=== PATIENT | female | born 1995 | race Caucasian/White ===

== ENCOUNTER 2019-12-11 11:25 | Emergency (ER) | payer SELFPAY ==
[2019-12-11 11:29] VITALS: BP 116/72; PULSE 90; RESP 16; TEMP 37.1; O2SAT 99; BMI 31.7
--- NOTE | 2019-12-11 11:37 | ED_ITS ---
Entered by Alley Mtz, acting as scribe for Pepe Vásquez MD, [facility] HPI - Abdominal Pain General: Chief Complaint: Abdominal Pain Stated Complaint: blood draw Time Seen by Provider: 12/11/19 11:37 Source: patient Mode of arrival: ambulatory Limitations: no limitations History of Present Illness: HPI narrative: 24 yo Female presents to ED with complaint of abdominal pain. Pt states that she was in the ED on [place] and had a sharp pain in the left side. Pt states that she has been cramping since then and was told to come back in if her cramping continued. Pt states that she has had continued cramping and wants to get her HCG levels checked. Pt states that she had an ectopic about a year and a half ago and wants to make sure she isn't having another one. MD elicited complaint: abdominal pain Onset (ago): week(s) (about 2) Pain Consistency: constant Location: Suprapubic Quality: cramping Radiation: none Migration to: no migration Exacerbating factors: nothing Relieving factors: nothing Associated Symptoms: Reports GI cramping and nausea; Denies chills, dysuria, fever(s) and vomiting Related Data: Date of Last Menstrual Period: 11/23/19 Review of Systems General: Reports: 10 or more systems reviewed and unremarkable except in HPI and below Const: Denies: fever or chills GI: Reports: abdominal pain, nausea and cramping; Denies: vomiting : Reports: vaginal odor (change in vaginal odor); Denies: painful urination, urinary frequency, urinary urgency, vaginal bleeding or vaginal discharge PFS ED PFSH: Statuses (acute, chronic, etc) shown below reflect problem list status as previously entered and may not be historically accurate Medical History (Updated 12/11/19 @ 12:22 by Pepe Vásquez MD, [facility]) Ectopic (Acute) Social History Smoking and tobacco status: current every day smoker Female Reproductive History: Date of last menstrual period: 11/23/19 Physical Exam Const: COMMON NORMALS: no apparent distress, average body habitus, oriented x3, no limitations, healthy appearing, alert and well nourished HENMT: COMMON NORMALS: normocephalic, head/scalp atraumatic, hearing grossly normal bilaterally, external ears normal, EAC's normal, TM's normal bilaterally, external nose normal, nasal mucous membranes and turbinates normal, moist oral mucous membranes, oropharynx normal, dentition normal and gingiva normal HEAD & SCALP: normocephalic and atraumatic NOSE: external nose normal and nasal mucous membranes and turbinates normal EXTERNAL EAR: Yes external ears normal EXTERNAL AUDITORY CANAL: EAC's normal TYMPANIC MEMBRANE: TM's normal bilaterally Eye: COMMON NORMALS: PERRL, EOMs intact bilaterally, conjunctivae normal, no scleral icterus, no papilledema, normal visual pino by confrontation and fundi normal bilaterally CONJUNCTIVA: Yes conjunctivae normal PUPIL: Yes PERRL DIRECT OPHTHALMOSCOPY: Yes no papilledema and Yes fundi normal bilaterally Neck/C-Spine: COMMON NORMALS: full ROM, supple, no meningeal signs, no JVD and no carotid bruits Chest: COMMONS NORMALS: inspection of chest normal and palpation of chest normal Resp: COMMON NORMALS: normal respiratory effort, no retractions, no use of accessory muscles, clear to auscultation bilaterally and percussion normal AUSCULTATION: clear to auscultation bilaterally PERCUSSION: percussion normal Cardio: COMMON NORMALS: no JVD, regular rate, regular rhythm, S1 normal heart sound, S2 normal heart sound, no gallops, no clicks, no murmurs, no rub and peripheral pulses 2+ throughout RATE: regular rate RHYTHM: regular rhythm HEART SOUNDS: S1 normal and S2 normal PERIPHERAL PULSES: pulses 2+ throughout GI: COMMON NORMALS: normal to inspection, nondistended, normoactive bowel sounds, soft to palpation, non-tender, no hepatosplenomegaly, no masses and no bruits PALPATION: Yes soft and Yes no hepatosplenomegaly : COMMON NORMALS: Yes no CVA tenderness BLADDER/KIDNEY EXAM: Yes no CVA tenderness Back/Pelvis: COMMON NORMALS: no CVA tenderness Extremity: COMMON NORMALS: normal to inspection, full ROM, normal capillary refill, no joint enlargement, no clubbing, cyanosis or edema, no calf tenderness and no pedal edema Neuro: COMMON NORMALS: oriented x3 SENSORIUM/ORIENTATION: Yes alert MENINGEAL SIGNS: Yes no meningeal signs Skin: COMMON NORMALS: no rashes or lesions noted, no wounds, skin turgor normal, no jaundice, no petechiae and no mottling GENERAL SKIN EXAM: no rashes or lesions noted and turgor normal Course Vital Signs: Vital signs: Vital Signs Temperature 98.7 F 12/11/19 11:29 Pulse Rate 90 12/11/19 11:29 Respiratory Rate 16 12/11/19 11:29 Blood Pressure 116/72 12/11/19 11:29 Pulse Oximetry 99 12/11/19 11:29 MDM - Abdominal Pain MDM Narrative: Medical decision making narrative: 24-year-old female who presented to the emergency department and apparently wanted blood beta-hCG testing done. The patient did not wait for the results and left AGAINST MEDICAL ADVICE. I went into her room to discuss some of her labs with her and she was not present. Found out that she had left AGAINST MEDICAL ADVICE. Differential Diagnosis: Differential diagnosis abdominal pain: Likely abdominal pain, calculus of kidney, diverticulitis and endometriosis Medical Records: Attestation: I reviewed the patient's medical records. Lab Data: Attestation: I reviewed the patient's lab results. Labs: Lab Results 12/11/19 12/11/19 12/11/19 Range/Units 11:50 11:58 11:58 WBC 5.5 (4.0-10.0) 10^3/ uL RBC 5.04 (4.1-5.3) 10^6/u L Hgb 14.0 (11.5-15.3) g/dL Hct 43.3 (37.0-47.0) % MCV 85.9 (81-99) fL MCH 27.8 L (28.0-34.0) pg MCHC 32.3 (30.0-36.0) g/dL RDW 12.1 (12.1-15.1) % Plt Count 183 (130-400) 10^3/c mm MPV 10.7 H (7.4-10.4) fL Neut % (Auto) 45.6 % Lymph % (Auto) 44.3 % [place] % (Auto) 6.9 % Eos % (Auto) 2.5 % Baso % (Auto) 0.5 % Neut # (Auto) 2.5 (1.8-7.7) 10^3/u L Lymph # (Auto) 2.5 (0.8-4.8) 10^3/u L [place] # (Auto) 0.4 (0.2-0.9) 10^3/u L Eos # (Auto) 0.1 (0.0-0.8) 10^3/u L Baso # (Auto) 0.0 (0.0-0.1) 10^3/u L Nucleated RBC % (a uto) 0 % Nucleated RBCs # 0.0 /100WBC Ser , Flora i-Qnt 0.50 mIU/mL Urine Color Yellow (Yellow) Urine Appearance Clear (CLEAR) Urine pH 5 (5-7) Ur Specific Gravit y 1.010 (1.005-1.030) Urine Protein Neg (Negative) Urine Glucose (UA) Norm (Normal) Urine Ketones Negative (Negative) Urine Occult Blood Neg (Negative) Urine Nitrate Negative (Negative) Urine Bilirubin Neg (NEGATIVE) Urine Urobilinogen Norm (Negative) mg/dL Ur Leukocyte Alicia ase Negative (Negative) Discharge Plan Discharge Patient Disposition: Left Against Medical Advice Clinical Impression: Abdominal pain Referrals: Obey Echavarria FNP [Primary Care Provider] - Patient Instructions: Cholecystitis (ED), Abdominal Pain (ED) Interventions: ED Discharge Assessment Last Done: 12/11/19 12:15 Discharge Date/Time: 12/11/19 12:18 Coding Level of Care Code ED Director Transportation for Chg Fwd Exam Problem Focused The documentation recorded by the Bibi powers Carmen, accurately reflects the service I personally performed and the decisions made by Thalia arriaga Adegoke I, MD, [facility] Dec 11, 2019 11:25
[2019-12-11 11:54] LABS: Add Urine Microscopic? NO
[2019-12-11 11:59] LABS: Bilirubin Urine Neg (NEGATIVE); Blood Urine Neg (Negative); Glucose Urine UA Norm (Normal); Ketones Urine Negative (Negative); Leukocyte Esterase Urine Negative (Negative); Nitrate Urine Negative (Negative); Protein Urine Neg (Negative); Urine Appearance Clear (CLEAR); Urine Color Yellow (Yellow); Urobilinogen Urine Norm (Negative); pH Urine 5 (5-7)
[2019-12-11 12:04] LABS: Basophils % 0.5 %; Eosinophils # 0.1 10^3/uL (0.0-0.8); Eosinophils % 2.5 %; Hematocrit 43.3 % (37.0-47.0); Lymphocytes # 2.5 10^3/uL (0.8-4.8); Lymphocytes % 44.3 %; Mean Corpuscular HGB Conc 32.3 g/dL (30.0-36.0); Mean Corpuscular Hemoglobin 27.8 pg (28.0-34.0); Mean Corpuscular Volume 85.9 fL (81-99); Mean Platelet Volume 10.7 fL (7.4-10.4); Monocytes # 0.4 10^3/uL (0.2-0.9); Monocytes % 6.9 %; Neutrophils # 2.5 10^3/uL (1.8-7.7); Neutrophils % 45.6 %; Nucleated Red Blood Cells % 0 %; Platelet Count 183 10^3/cmm (130-400); Red Blood Count 5.04 10^6/uL (4.1-5.3); Red Cell Distribution Width 12.1 % (12.1-15.1); White Blood Count 5.5 10^3/uL (4.0-10.0)
[2019-12-11 12:30] LABS: Alanine Aminotransferase 20 U/L (0-33); Albumin Level 4.7 g/dL (3.5-5.2); Alkaline Phosphatase 123 IU/L (35-105); Aspartate Amino Transferase 19 U/L (0-32); Blood Urea Nitrogen 7 mg/dL (6-20); Calcium 10.3 mg/Dl (8.6-10.0); Carbon Dioxide 28 mmol/L (22-29); Chloride 105 mmol/L (98-107); Globulin 3.3 g/dL (1.3-4.6); Glomerular Filtration Rate 149.1 mL/min (90-130); Glucose 109 mg/dL (74-109); Sodium 148 mmol/L (136-145); Total Bilirubin 0.5 mg/dL (0.15-1.2)
== END 2019-12-11 12:18 | disposition left against medical advice (07) ==
PROVIDERS: Emergency Provider Family Medicine; Family Provider Registered Nurse; PCP Registered Nurse
DX: Z53.21 Procedure and treatment not carried out due to patient leaving prior to being seen by health care provider (principal); F17.210 Nicotine dependence, cigarettes, uncomplicated
CPT/HCPCS: 36415; 80053; 81003; 84702; 85025; 99281

== ENCOUNTER 2019-12-14 12:35 | Emergency (ER) | payer SELFPAY ==
[2019-12-14 12:44] VITALS: BP 116/84; PULSE 90; RESP 18; TEMP 36.7; O2SAT 98; BMI 31.7
[2019-12-14 13:32] LABS: Basophils % 0.4 %; Eosinophils # 0.1 10^3/uL (0.0-0.8); Eosinophils % 1.1 %; Hematocrit 45.9 % (37.0-47.0); Hemoglobin 14.9 g/dL (11.5-15.3); Lymphocytes # 2.7 10^3/uL (0.8-4.8); Lymphocytes % 33.6 %; Mean Corpuscular HGB Conc 32.5 g/dL (30.0-36.0); Mean Corpuscular Volume 89.3 fL (81-99); Mean Platelet Volume 10.7 fL (7.4-10.4); Monocytes # 0.5 10^3/uL (0.2-0.9); Monocytes % 5.9 %; Neutrophils # 4.8 10^3/uL (1.8-7.7); Neutrophils % 58.6 %; Nucleated Red Blood Cells % 0 %; Platelet Count 206 10^3/cmm (130-400); Red Blood Count 5.14 10^6/uL (4.1-5.3); Red Cell Distribution Width 11.9 % (12.1-15.1); White Blood Count 8.2 10^3/uL (4.0-10.0)
[2019-12-14 13:36] LABS: HCG Quantitative 9.35 mIU/mL
[2019-12-14 13:39] LABS: Alanine Aminotransferase 20 U/L (0-33); Albumin Level 4.8 g/dL (3.5-5.2); Alkaline Phosphatase 124 IU/L (35-105); Anion Gap 13.4 (5-19); Aspartate Amino Transferase 18 U/L (0-32); Blood Urea Nitrogen 13 mg/dL (6-20); Carbon Dioxide 29 mmol/L (22-29); Chloride 102 mmol/L (98-107); Globulin 3.1 g/dL (1.3-4.6); Glomerular Filtration Rate 101.1 mL/min (90-130); Glucose 109 mg/dL (74-109); Potassium 3.4 mmol/L (3.5-5.1); Sodium 141 mmol/L (136-145); Total Bilirubin 0.4 mg/dL (0.15-1.2); Total Protein 7.9 g/dL (6.6-8.7)
--- NOTE | 2019-12-14 14:33 | ED_ITS ---
HPI - Female Genitourinary General: Chief complaint: Abdominal Pain Stated complaint: Cramping and bleeding Time Seen by Provider: 12/14/19 14:33 Source: patient Mode of arrival: ambulatory Limitations: no limitations History of Present Illness: HPI Narrative: Patient is a 24-year-old female who presents to ED today wanting evaluation after she had 4+ home tests this morning; patient was initially seen in our ER on 11/29/2019 for complaints of left-sided lower abdominal pain; she was seen again at our facility 2 days ago for lower abdominal cramping and believing she might be ; hCG at that visit was 0.50/neg; she states she was spotting and has continued to scantly bleed since that visit; she is continued to have mild lower abdominal cramping; denies vaginal discharge/odor; no urinary frequency, hesitancy, dysuria, urgency MD elicited complaint: vaginal bleeding, suspected and other (cramping) Severity: mild Quality of pain: cramping Vaginal discharge: none Vaginal bleeding: scant Exacerbating factors: none Relieving factors: none Associated symptoms: Reports no associated symptoms; Deny abdominal pain, headache(s), nausea, syncope or vaginal discharge Treatment prior to arrival: none Sexual activity: Yes Possible : unsure if and at home test positive Date of Last Menstrual Period: 11/20/19 Review of Systems Const: Denies: fever or chills Eyes: Denies: change in vision or blurry vision Card: Denies: chest pain, palpitations, irregular heart rhythm, lightheadedness, syncope or shortness of breath on exertion Resp: Denies: shortness of breath, productive cough or pain on inspiration GI: Denies: abdominal pain, nausea, vomiting, heartburn/indigestion or diarrhea : Reports: vaginal bleeding and pelvic pain; Denies: flank pain, difficulty urinating, painful urination, urinary frequency, urinary urgency, vaginal discharge or irregular period Musc: Denies: neck pain, back pain or joint pain Skin/Breast: Denies: rash Neuro: Denies: headache PFSH ED PFSH: Statuses (acute, chronic, etc) shown below reflect problem list status as previously entered and may not be historically accurate Medical History (Updated 12/14/19 @ 15:26 by VONDA Jimenez) Ectopic (Acute) Social History Smoking and tobacco status: current every day smoker Female Reproductive History: Date of last menstrual period: 11/20/19 Physical Exam Const: COMMON NORMALS: no apparent distress, oriented x3, alert and well nourished HENMT: COMMON NORMALS: normocephalic and head/scalp atraumatic HEAD & SCALP: normocephalic and atraumatic Neck/C-Spine: COMMON NORMALS: full ROM, no lymphadenopathy, supple and no meningeal signs Chest: COMMONS NORMALS: inspection of chest normal Resp: COMMON NORMALS: normal respiratory effort and clear to auscultation bilaterally AUSCULTATION: clear to auscultation bilaterally Cardio: COMMON NORMALS: regular rate and regular rhythm RATE: regular rate RHYTHM: regular rhythm GI: COMMON NORMALS: normal to inspection, nondistended, normoactive bowel sounds, soft to palpation, no hepatosplenomegaly and no masses PALPATION: Yes soft, Yes tender (mild throughout lower abdomen ) and Yes no hepatosplenomegaly : COMMON NORMALS: Yes no CVA tenderness BLADDER/KIDNEY EXAM: Yes no CVA tenderness Back/Pelvis: COMMON NORMALS: no CVA tenderness and thoracic and lumbar spine normal to inspection Extremity: COMMON NORMALS: normal to inspection Neuro: COMMON NORMALS: oriented x3 SENSORIUM/ORIENTATION: Yes alert MENINGEAL SIGNS: Yes no meningeal signs Skin: COMMON NORMALS: no rashes or lesions noted GENERAL SKIN EXAM: no rashes or lesions noted Course Vital Signs: Vital signs: Vital Signs Temperature 98.0 F 12/14/19 12:44 Pulse Rate 88 12/14/19 15:48 Respiratory Rate 18 12/14/19 15:48 Blood Pressure 118/79 12/14/19 15:48 Pulse Oximetry 97 12/14/19 15:48 MDM - Female MDM Narrative: Medical decision making narrative: spoke to US who stated they aren't going to see anything different today than her previous US (had completely negative US on 11/29) especially given the fact that her hcg is only 9 today; she will be given orders for repeat hCG in 48 hours; information placed with case management to get her set up with an MANAGER BANK return to ED precautions given regarding worsening pain/cramping, increased bleeding, fevers greater than 100.4, urinary symptoms, vaginal discharge/odor, or any other concerns she may have Lab Data: Labs: Lab Results 12/14/19 12/14/19 12/14/19 Range/Units 13:10 13:10 13:10 WBC 8.2 (4.0-10.0) 10^3/ uL RBC 5.14 (4.1-5.3) 10^6/u L Hgb 14.9 (11.5-15.3) g/dL Hct 45.9 (37.0-47.0) % MCV 89.3 (81-99) fL MCH 29.0 (28.0-34.0) pg MCHC 32.5 (30.0-36.0) g/dL RDW 11.9 L (12.1-15.1) % Plt Count 206 (130-400) 10^3/c mm MPV 10.7 H (7.4-10.4) fL Neut % (Auto) 58.6 % Lymph % (Auto) 33.6 % [place] % (Auto) 5.9 % Eos % (Auto) 1.1 % Baso % (Auto) 0.4 % Neut # (Auto) 4.8 (1.8-7.7) 10^3/u L Lymph # (Auto) 2.7 (0.8-4.8) 10^3/u L [place] # (Auto) 0.5 (0.2-0.9) 10^3/u L Eos # (Auto) 0.1 (0.0-0.8) 10^3/u L Baso # (Auto) 0.0 (0.0-0.1) 10^3/u L Nucleated RBC % (a uto) 0 % Nucleated RBCs # 0.0 /100WBC Sodium 141 (136-145) mmol/L Potassium 3.4 L (3.5-5.1) mmol/L Chloride 102 (98-107) mmol/L Carbon Dioxide 29 (22-29) mmol/L Anion Gap 13.4 (5-19) BUN 13 (6-20) mg/dL Creatinine 0.7 (0.5-0.9) mg/dL GFR Calculation 101.1 (90-130) mL/min Glucose 109 (74-109) mg/dL Calcium 10.0 (8.6-10.0) mg/Dl Total Bilirubin 0.4 (0.15-1.2) mg/dL AST 18 (0-32) U/L ALT 20 (0-33) U/L Alkaline Phosphata se 124 H (35-105) IU/L Total Protein 7.9 (6.6-8.7) g/dL Albumin 4.8 (3.5-5.2) g/dL Globulin 3.1 (1.3-4.6) g/dL Ser , Flora i-Qnt mIU/mL Blood Type A Positive 12/14/19 Range/Units 13:10 WBC (4.0-10.0) 10^3/ uL RBC (4.1-5.3) 10^6/u L Hgb (11.5-15.3) g/dL Hct (37.0-47.0) % MCV (81-99) fL MCH (28.0-34.0) pg MCHC (30.0-36.0) g/dL RDW (12.1-15.1) % Plt Count (130-400) 10^3/c mm MPV (7.4-10.4) fL Neut % (Auto) % Lymph % (Auto) % [place] % (Auto) % Eos % (Auto) % Baso % (Auto) % Neut # (Auto) (1.8-7.7) 10^3/u L Lymph # (Auto) (0.8-4.8) 10^3/u L [place] # (Auto) (0.2-0.9) 10^3/u L Eos # (Auto) (0.0-0.8) 10^3/u L Baso # (Auto) (0.0-0.1) 10^3/u L Nucleated RBC % (a uto) % Nucleated RBCs # /100WBC Sodium (136-145) mmol/L Potassium (3.5-5.1) mmol/L Chloride (98-107) mmol/L Carbon Dioxide (22-29) mmol/L Anion Gap (5-19) BUN (6-20) mg/dL Creatinine (0.5-0.9) mg/dL GFR Calculation (90-130) mL/min Glucose (74-109) mg/dL Calcium (8.6-10.0) mg/Dl Total Bilirubin (0.15-1.2) mg/dL AST (0-32) U/L ALT (0-33) U/L Alkaline Phosphata se (35-105) IU/L Total Protein (6.6-8.7) g/dL Albumin (3.5-5.2) g/dL Globulin (1.3-4.6) g/dL Ser , Flora i-Qnt 9.35 mIU/mL Blood Type Discharge Plan Discharge Patient Disposition: Home, Self-Care Clinical Impression: Positive blood test, , threatened Condition: Stable Discharge Orders: Discharge Order (Routine); Ordered 12/14/19 Ordered By: Cherelle Quiñones Referrals: Obey Echavarria FNP [Primary Care Provider] - Activity Restrictions/Additional Instructions: Begin taking prenatals. You have been given order for outpatient repeat hcg in 48 hours. These results will be faxed to [facility]. Case management is working on setting you up with an appointment date and drew. Discharge Date/Time: 12/14/19 15:54 Coding Level of Care Code ED Electrical Engineering Drafting Officer for Chg Fwd Exam Problem Focused
[2019-12-14 15:48] VITALS: BP 118/79; PULSE 88; RESP 18; O2SAT 97
--- NOTE | 2019-12-16 10:52 | DCPLANNER ---
financial institution manager had message to schedule a follow up appointment for patient with [facility]. financial institution manager called [facility], spoke with Jeanine, gave clinic patients information. financial institution manager was told that patients information would be printed and reviewed. Clinic will call bilingual patient support caseworker and patient with appointment information. financial institution manager did have an out patient order for patient to have her blood drawn. financial institution manager took the order to main admissions.
--- NOTE | 2019-12-21 10:51 | DCPLANNER ---
Jeanine from [facility] called, stating that before scheduling an appointment going to wait until labs are drawn. Clinic will call patient with appointment information.
== END 2019-12-14 15:54 | disposition home or self-care (01) ==
PROVIDERS: Emergency Provider Physician Assistant; Family Provider Registered Nurse; PCP Registered Nurse
DX: O20.0 Threatened abortion (principal); Z3A.00 Weeks of gestation of pregnancy not specified; O99.330 Smoking (tobacco) complicating pregnancy, unspecified trimester; F17.210 Nicotine dependence, cigarettes, uncomplicated
CPT/HCPCS: 36415; 80053; 84702; 85025; 86900; 99281; 99283

== ENCOUNTER 2019-12-16 13:42 | Outpatient (CLI) | payer SELFPAY ==
[2019-12-16 14:17] LABS: HCG Quantitative 18.16 mIU/mL
== END 2019-12-16 13:43 | disposition home or self-care (01) ==
LOC: LAB 13:45
PROVIDERS: Family Provider Registered Nurse; PCP Registered Nurse; Visit Provider Physician Assistant
DX: O20.0 Threatened abortion (principal)
CPT/HCPCS: 84702

== ENCOUNTER → 2019-12-21 11:44 | Outpatient (BNVA) | payer SELFPAY | PROVIDERS: Family Provider Registered Nurse; PCP Registered Nurse; Visit Provider Obstetrics & Gynecology | DX: O20.0 Threatened abortion (principal) | CPT/HCPCS: 84702 ==

== ENCOUNTER 2019-12-26 15:34 | Emergency (ER) | payer SELFPAY ==
[2019-12-26 16:09] VITALS: BP 135/109; PULSE 81; RESP 20; TEMP 36.9; O2SAT 100; BMI 30.6
--- NOTE | 2019-12-26 16:23 | W.ED.GENADLT ---
HPI - General Adult General: Chief complaint: General Medical Stated complaint: HCG levels checked Time Seen by Provider: 12/26/19 16:22 History of Present Illness: HPI narrative: Gin this 24-year-old white female presents with a history of positive home test on December 14. She states she went to her [employer]RON[employer]SEMBL[employer]'s office and they did a beta hCG at that time and it was found to be benign. They checked it again 2 days later and it had doubled. The checked again on the and they told her it was negative. Associated symptoms: Deny chest pain, dyspnea, nausea, palpitations or vomiting Review of Systems Const: Denies: fever or chills Eyes: Denies: change in vision ENMT: Denies: throat pain Card: Denies: chest pain or palpitations Resp: Denies: shortness of breath GI: Denies: abdominal pain, nausea or vomiting Musc: Denies: back pain PFSH ED PFSH: Statuses (acute, chronic, etc) shown below reflect problem list status as previously entered and may not be historically accurate Medical History Ectopic (Acute) Social History Smoking and tobacco status: current every day smoker Female Reproductive History: Date of last menstrual period: 11/20/19 Physical Exam Const: COMMON NORMALS: no apparent distress and oriented x3 HENMT: COMMON NORMALS: normocephalic HEAD & SCALP: normocephalic Eye: COMMON NORMALS: PERRL, EOMs intact bilaterally and conjunctivae normal CONJUNCTIVA: Yes conjunctivae normal PUPIL: Yes PERRL Chest: COMMONS NORMALS: inspection of chest normal Resp: COMMON NORMALS: normal respiratory effort and clear to auscultation bilaterally EFFORT & INSPECTION: Yes able to speak in complete sentences AUSCULTATION: clear to auscultation bilaterally Cardio: COMMON NORMALS: regular rate and regular rhythm RATE: regular rate RHYTHM: regular rhythm GI: COMMON NORMALS: normal to inspection, nondistended, normoactive bowel sounds Extremity: COMMON NORMALS: normal to inspection Neuro: COMMON NORMALS: oriented x3, moves all extremities and no focal motor deficits Psych: COMMON NORMALS: mental status grossly normal, cooperative and affect normal Skin: COMMON NORMALS: no rashes or lesions noted GENERAL SKIN EXAM: no rashes or lesions noted Course ED course: patient's beta hCGs down to 0.50. This is down from 1.65 on 12/21/2019. Advised her to follow-up with her family doctor within the next week. She verbalizes understanding and agrees to this plan. Advised her to quit smoking. Vital Signs: Vital signs: Vital Signs Temperature 98.5 F 12/26/19 16:09 Pulse Rate 81 12/26/19 16:09 Respiratory Rate 20 H 12/26/19 16:09 Blood Pressure 135/109 12/26/19 16:09 Pulse Oximetry 100 12/26/19 16:09 MDM - General Adult Differential Diagnosis: Differential Diagnosis: missed , ectopic Lab Data: Labs: Lab Results 12/26/19 Range/Units 15:48 Ser , Flora i-Qnt 0.50 mIU/mL Discharge Plan Discharge Patient Disposition: Home, Self-Care Clinical Impression: No problem, feared complaint unfounded Condition: Stable Prescriptions: No Action No Known Home Medications RF: 0 Referrals: Obey Echavarria FNP [Primary Care Provider] - Discharge Diet: Usual diet Discharge Activity: Resume usual activity Activity Restrictions/Additional Instructions: Drink plenty of fluids. Follow-up with your family doctor in 3-5 days. Return if any problems. Coding Level of Care Code ED Manager Title for Cornelia Malcolm
[2019-12-26 16:26] VITALS: BP 106/79; PULSE 82; RESP 16; TEMP 36.6; O2SAT 98
== END 2019-12-26 16:55 | disposition home or self-care (01) ==
PROVIDERS: Emergency Medicine; Emergency Provider Family Medicine; Family Provider Registered Nurse; PCP Registered Nurse
DX: Z03.89 Encounter for observation for other suspected diseases and conditions ruled out (principal); F17.210 Nicotine dependence, cigarettes, uncomplicated
CPT/HCPCS: 36415; 84702; 99281

== ENCOUNTER 2020-01-03 14:20 | Outpatient (CLI) | payer SELFPAY | END 2020-01-03 14:21 | disposition home or self-care (01) | LOC: LAB 14:23 | PROVIDERS: Family Provider Registered Nurse; PCP Registered Nurse; Visit Provider Registered Nurse | DX: Z34.90 Encounter for supervision of normal pregnancy, unspecified, unspecified trimester (principal) | CPT/HCPCS: 84702 ==

== ENCOUNTER → 2020-01-30 14:47 | Outpatient (BNVA) | payer SELFPAY | PROVIDERS: Family Provider Registered Nurse; PCP Registered Nurse; Visit Provider Obstetrics & Gynecology | DX: O02.1 Missed abortion (principal); O03.9 Complete or unspecified spontaneous abortion without complication | CPT/HCPCS: 81025 ==

== ENCOUNTER → 2020-03-01 09:37 | Outpatient (BNVA) | payer SELFPAY | PROVIDERS: Family Provider Registered Nurse; PCP Registered Nurse; Visit Provider Obstetrics & Gynecology | DX: O03.9 Complete or unspecified spontaneous abortion without complication (principal); N85.2 Hypertrophy of uterus; N83.292 Other ovarian cyst, left side | CPT/HCPCS: 76830 ==

== ENCOUNTER → 2020-05-07 13:50 | Outpatient (BNVA) | payer SELFPAY | PROVIDERS: Family Provider Registered Nurse; PCP Registered Nurse; Visit Provider Obstetrics & Gynecology | DX: Z32.01 Encounter for pregnancy test, result positive (principal) | CPT/HCPCS: 84702 ==

== ENCOUNTER → 2020-05-11 08:36 | Outpatient (BNVA) | payer SELFPAY | PROVIDERS: Family Provider Registered Nurse; PCP Registered Nurse; Visit Provider Obstetrics & Gynecology | DX: Z34.90 Encounter for supervision of normal pregnancy, unspecified, unspecified trimester (principal) | CPT/HCPCS: 84702 ==

== ENCOUNTER 2020-05-13 21:18 | Emergency (ER) | payer SELFPAY ==
[2020-05-13 21:34] VITALS: BP 130/62; PULSE 93; RESP 12; TEMP 36.1; O2SAT 97; BMI 29.2
[2020-05-13 22:12] LABS: Basophils % 0.3 %; Eosinophils # 0.2 10^3/uL (0.0-0.8); Eosinophils % 2.2 %; Hematocrit 43.6 % (37.0-47.0); Hemoglobin 14.1 g/dL (11.5-15.3); Lymphocytes # 4.5 10^3/uL (0.8-4.8); Lymphocytes % 47.2 %; Mean Corpuscular HGB Conc 32.3 g/dL (30.0-36.0); Mean Corpuscular Hemoglobin 29.4 pg (28.0-34.0); Mean Corpuscular Volume 90.8 fL (81-99); Mean Platelet Volume 10.7 fL (7.4-10.4); Monocytes # 0.7 10^3/uL (0.2-0.9); Monocytes % 7.3 %; Neutrophils # 4.1 10^3/uL (1.8-7.7); Neutrophils % 42.8 %; Nucleated Red Blood Cells % 0 %; Platelet Count 183 10^3/cmm (130-400); White Blood Count 9.6 10^3/uL (4.0-10.0)
[2020-05-13 22:26] LABS: Alanine Aminotransferase 15 U/L (0-33); Albumin Level 4.4 g/dL (3.5-5.2); Alkaline Phosphatase 93 IU/L (35-105); Anion Gap 17.2 (5-19); Aspartate Amino Transferase 17 U/L (0-32); Blood Urea Nitrogen 10 mg/dL (6-20); Calcium 9.5 mg/dL (8.5-10.5); Carbon Dioxide 26 mmol/L (22-29); Chloride 102 mmol/L (98-107); Globulin 3.1 g/dL (1.3-4.6); Glomerular Filtration Rate 120.8 mL/min (90-130); Glucose 103 mg/dL (65-115); Lipase 24 U/L (13-60); Osmolality Calculated 288 mOsm/kg (285-295); Potassium 4.2 mmol/L (3.5-5.1); Sodium 141 mmol/L (136-145); Total Bilirubin 0.2 mg/dL (0.15-1.2); Total Protein 7.5 g/dL (6.6-8.7)
[2020-05-13 22:31] LABS: HCG, Serum Qual Positive (Negative)
[2020-05-13 22:57] LABS: Add Urine Microscopic? NO
[2020-05-13 23:05] LABS: Bilirubin Urine Neg (NEGATIVE); Blood Urine Neg (Negative); Glucose Urine UA Norm (Normal); Ketones Urine 1+ (Negative); Nitrate Urine Negative (Negative); Protein Urine Neg (Negative); Urine Appearance Clear (CLEAR); Urine Color Yellow (Yellow); pH Urine 5 (5-7)
--- NOTE | 2020-05-13 23:05 | USR_ITS ---
PROCEDURE INFORMATION: Exam: US Pelvis, Transvaginal Exam date and time: 05/13/2020 11:34 PM Age: 24 years old Clinical indication: Pelvic pain; Additional info: Pelvic pain, early , history of ectopic TECHNIQUE: Imaging protocol: Real-time transvaginal pelvic ultrasound with image documentation. Transvaginal imaging was used for better evaluation of the endometrium and adnexa. COMPARISON: No relevant prior studies available. FINDINGS: Uterus/cervix: The uterus measures 8.3 x 4.6 x 5.8 cm. The endometrium measures 11 mm in thickness. Gestation: No definite gestational sac is seen although there is a tiny cyst seen within the endometrial canal of the uterine fundus. This could represent a very early gestational sac. The estimated gestational age is 4 weeks 4 days. Right adnexa: The right ovary measures 2.1 x 1.4 x 2.1 cm. Vascular flow is demonstrated within the right ovary with color Doppler and duplex waveform sonography. PSV 7.1 cm/s, RI 0.56. Left adnexa: The left ovary measures 2.2 x 1.7 x 2.4 cm. Vascular flow is demonstrated within the left ovary with color Doppler and duplex waveform sonography. PSV 3.8 cm/s, RI 0.27. Free fluid: None. US/US transvaginal [id number] IMPRESSION: There is no definite evidence for a gestational sac although there is a cyst seen within the fundic endometrium that could represent a very early gestation. Is estimated at 4 weeks 4 days. As such, follow-up sonography is suggested in 2-4 weeks to establish the presence of a viable intrauterine gestation.
[2020-05-13 23:06] LABS: Leukocyte Esterase Urine Negative (Negative); Urobilinogen Urine Norm (Negative)
--- NOTE | 2020-05-13 23:21 | W.ED.ABDPA2 ---
HPI - Abdominal Pain General: Chief Complaint: Abdominal Pain Stated Complaint: abd pain Time Seen by Provider: 05/13/20 22:51 Source: patient Mode of arrival: ambulatory Limitations: no limitations History of Present Illness: HPI narrative: Patient comes in today for complaints of pelvic abdominal pain and cramping. Patient states that she found out she was on Thursday and has been having cramping on and off since then. Patient came in today due to increased discomfort. Patient does have a history of a previous ectopic on the left side she states. Patient appears well. Patient appears in no acute distress. Related Data: Date of Last Menstrual Period: 11/20/19 Review of Systems General: Reports: 10 or more systems reviewed and unremarkable except in HPI and below GI: Reports: abdominal pain PFSH ED PFSH: Medical History (Updated 05/14/20 @ 00:09 by STEPH Morales) Depression with anxiety Ectopic Missed Social History Smoking and tobacco status: current every day smoker cigarettes Packs smoked per day: 1 Alcohol intake: never Female Reproductive History: Date of last menstrual period: 11/20/19 : 5 Physical Exam Const: COMMON NORMALS: no acute distress and patient oriented x3 GENERAL APPEARANCE: cooperative HENMT: COMMON NORMALS: normocephalic and Normal external nose present HEAD & SCALP: normal to inspection and normocephalic NOSE: Normal external nose present MOUTH: Normal oral and palatal mucosa present THROAT: posterior oropharynx normal Eye: GENERAL EYE: appearance normal, both eyes and all related structures Neck/C-Spine: COMMON NORMALS: full ROM Lymph: LYMPHATIC: no lymphadenopathy noted Chest: COMMONS NORMALS: normal inspection of the chest Resp: COMMON NORMALS: normal respiratory effort EFFORT & INSPECTION: Yes able to speak in complete sentences Cardio: COMMON NORMALS: regular rate and regular rhythm RATE: regular rate RHYTHM: regular rhythm GI: COMMON NORMALS: Soft to palpation and non-tender PALPATION: Yes Soft to palpation : COMMON NORMALS: Yes no CVA tenderness BLADDER/KIDNEY EXAM: Yes no CVA tenderness Back/Pelvis: COMMON NORMALS: no CVA tenderness and thoracic and lumbar spine normal to inspection Extremity: COMMON NORMALS: normal to inspection Neuro: COMMON NORMALS: patient oriented x3 and moves all extremities Psych: COMMON NORMALS: mental status grossly normal and cooperative Skin: COMMON NORMALS: no rashes or lesions noted GENERAL SKIN EXAM: no rashes or lesions noted Course Vital Signs: Vital signs: Vital Signs Temperature 96.9 F L 05/13/20 21:34 Pulse Rate 93 05/13/20 21:34 Respiratory Rate 12 05/13/20 21:34 Blood Pressure 130/62 05/13/20 21:34 Pulse Oximetry 97 05/13/20 21:34 MDM - Abdominal Pain MDM Narrative: Medical decision making narrative: Patient presents today with concerns of ectopic . Patient tested positive for a on Thursday with hCG level of 25. Patient appears well. Abdomen soft and nontender. No CVA tenderness. Respirations are even lungs are clear to auscultation vital signs are normal. Differential diagnosis includes but not limited to ectopic , early , threatened miscarriage, urinary tract infection. Reviewed exam with patient including labs in which CBC was normal, metabolic panel was normal, urinalysis was normal except for some ketones. Ultrasound of the pelvis noted no obvious gestational sac at this time. Reviewed exam with patient recommended follow-up with COMMUNITY SERVICES COORDINATOR reassuring patient that it was really early in still for us to rule out ectopic but she would not be of any risk at this time. Discussed need for close follow-up and repeat exam. Patient reported understanding agreed to plan. Lab Data: Labs: Lab Results 05/13/20 05/13/20 05/13/20 Range/Units 21:53 22:08 22:08 WBC 9.6 (4.0-10.0) 10^3/ uL RBC 4.80 (4.1-5.3) 10^6/u L Hgb 14.1 (11.5-15.3) g/dL Hct 43.6 (37.0-47.0) % MCV 90.8 (81-99) fL MCH 29.4 (28.0-34.0) pg MCHC 32.3 (30.0-36.0) g/dL RDW 12.0 L (12.1-15.1) % Plt Count 183 (130-400) 10^3/c mm MPV 10.7 H (7.4-10.4) fL Neut % (Auto) 42.8 % Lymph % (Auto) 47.2 % [place] % (Auto) 7.3 % Eos % (Auto) 2.2 % Baso % (Auto) 0.3 % Neut # (Auto) 4.1 (1.8-7.7) 10^3/u L Lymph # (Auto) 4.5 (0.8-4.8) 10^3/u L [place] # (Auto) 0.7 (0.2-0.9) 10^3/u L Eos # (Auto) 0.2 (0.0-0.8) 10^3/u L Baso # (Auto) 0.0 (0.0-0.1) 10^3/u L Nucleated RBC % (a uto) 0 % Nucleated RBCs # 0.0 /100WBC Sodium 141 (136-145) mmol/L Potassium 4.2 (3.5-5.1) mmol/L Chloride 102 (98-107) mmol/L Carbon Dioxide 26 (22-29) mmol/L Anion Gap 17.2 (5-19) BUN 10 (6-20) mg/dL Creatinine 0.6 (0.5-0.9) mg/dL GFR Calculation 120.8 (90-130) mL/min Glucose 103 (65-115) mg/dL Calculated Osmolal ity 288 (285-295) mOsm/k g Calcium 9.5 (8.5-10.5) mg/dL Total Bilirubin 0.2 (0.15-1.2) mg/dL AST 17 (0-32) U/L ALT 15 (0-33) U/L Alkaline Phosphata se 93 (35-105) IU/L Total Protein 7.5 (6.6-8.7) g/dL Albumin 4.4 (3.5-5.2) g/dL Globulin 3.1 (1.3-4.6) g/dL Lipase 24 (13-60) U/L HCG, Qual (Negative) Ser , Flora i-Qnt mIU/mL Urine Color Yellow (Yellow) Urine Appearance Clear (CLEAR) Urine pH 5 (5-7) Ur Specific Gravit y 1.020 (1.005-1.030) Urine Protein Neg (Negative) Urine Glucose (UA) Norm (Normal) Urine Ketones 1+ H (Negative) Urine Blood Neg (Negative) Urine Nitrate Negative (Negative) Urine Bilirubin Neg (NEGATIVE) Urine Urobilinogen Norm (Negative) mg/dL Ur Leukocyte Alicia ase Negative (Negative) 05/13/20 05/13/20 Range/Units 22:08 22:08 WBC (4.0-10.0) 10^3/ uL RBC (4.1-5.3) 10^6/u L Hgb (11.5-15.3) g/dL Hct (37.0-47.0) % MCV (81-99) fL MCH (28.0-34.0) pg MCHC (30.0-36.0) g/dL RDW (12.1-15.1) % Plt Count (130-400) 10^3/c mm MPV (7.4-10.4) fL Neut % (Auto) % Lymph % (Auto) % [place] % (Auto) % Eos % (Auto) % Baso % (Auto) % Neut # (Auto) (1.8-7.7) 10^3/u L Lymph # (Auto) (0.8-4.8) 10^3/u L [place] # (Auto) (0.2-0.9) 10^3/u L Eos # (Auto) (0.0-0.8) 10^3/u L Baso # (Auto) (0.0-0.1) 10^3/u L Nucleated RBC % (a uto) % Nucleated RBCs # /100WBC Sodium (136-145) mmol/L Potassium (3.5-5.1) mmol/L Chloride (98-107) mmol/L Carbon Dioxide (22-29) mmol/L Anion Gap (5-19) BUN (6-20) mg/dL Creatinine (0.5-0.9) mg/dL GFR Calculation (90-130) mL/min Glucose (65-115) mg/dL Calculated Osmolal ity (285-295) mOsm/k g Calcium (8.5-10.5) mg/dL Total Bilirubin (0.15-1.2) mg/dL AST (0-32) U/L ALT (0-33) U/L Alkaline Phosphata se (35-105) IU/L Total Protein (6.6-8.7) g/dL Albumin (3.5-5.2) g/dL Globulin (1.3-4.6) g/dL Lipase (13-60) U/L HCG, Qual Positive H (Negative) Ser , Flora i-Qnt 274.90 mIU/mL Urine Color (Yellow) Urine Appearance (CLEAR) Urine pH (5-7) Ur Specific Gravit y (1.005-1.030) Urine Protein (Negative) Urine Glucose (UA) (Normal) Urine Ketones (Negative) Urine Blood (Negative) Urine Nitrate (Negative) Urine Bilirubin (NEGATIVE) Urine Urobilinogen (Negative) mg/dL Ur Leukocyte Alicia ase (Negative) Discharge Plan Discharge Patient Disposition: Home, Self-Care Clinical Impression: Early stage of Abdominal pain Qualifiers: Abdominal location: unspecified location Qualified Code(s): R10.9 - Unspecified abdominal pain Condition: Stable Prescriptions: No Action No Known Home Medications RF: 0 Discharge Orders: Discharge Order (Routine); Ordered 05/14/20 Ordered By: Edmund Diana Referrals: Obey Echavarria FNP [Primary Care Provider] - Discharge Diet: Usual diet Discharge Activity: Increase activity as tolerated Patient Instructions: Abdominal Pain (ED) Activity Restrictions/Additional Instructions: Drink plenty of water. Activity as tolerated. Follow-up with primary care, or COMMUNITY SERVICES COORDINATOR for further treatment. Return to the ER for heavy bleeding or high fever, or new concerns. Coding Level of Care Code ED Mental Telepathist for Cornelia Malcolm Exam Comprehensive
[2020-05-14 00:30] VITALS: BP 128/72; PULSE 86; RESP 14; O2SAT 97
--- NOTE | 2020-05-14 00:39 | PC.NURSE ---
i agree with this assessment
== END 2020-05-14 00:40 | disposition home or self-care (01) ==
PROVIDERS: Emergency Provider Nurse Practitioner Family; PCP Registered Nurse
DX: O26.891 Other specified pregnancy related conditions, first trimester (principal); R10.9 Unspecified abdominal pain; O99.331 Smoking (tobacco) complicating pregnancy, first trimester; F17.210 Nicotine dependence, cigarettes, uncomplicated; Z3A.01 Less than 8 weeks gestation of pregnancy
CPT/HCPCS: 12345; 36415; 76830; 80053; 81003; 83690; 84702; 84703; 85025; 99282; 99283

== ENCOUNTER 2020-05-16 08:03 | Outpatient (CLI) | payer SELFPAY | END 2020-05-16 08:04 | disposition home or self-care (01) | LOC: LAB 08:06 | PROVIDERS: PCP Registered Nurse; Visit Provider Obstetrics & Gynecology | DX: Z34.90 Encounter for supervision of normal pregnancy, unspecified, unspecified trimester (principal) | CPT/HCPCS: 36415; 84702 ==

== ENCOUNTER 2020-05-21 10:20 | Outpatient (CLI) | payer SELFPAY | END 2020-05-21 10:21 | disposition home or self-care (01) | LOC: LAB 10:27 | PROVIDERS: PCP Registered Nurse; Visit Provider Obstetrics & Gynecology | DX: Z34.90 Encounter for supervision of normal pregnancy, unspecified, unspecified trimester (principal) | CPT/HCPCS: 84702 ==

== ENCOUNTER 2020-05-23 08:49 | Outpatient (CLI) | payer SELFPAY | END 2020-05-23 08:50 | disposition home or self-care (01) | LOC: LAB 08:52 | PROVIDERS: PCP Registered Nurse; Visit Provider Obstetrics & Gynecology | DX: O20.9 Hemorrhage in early pregnancy, unspecified (principal) | CPT/HCPCS: 84702 ==

== ENCOUNTER 2020-05-25 08:37 | Outpatient (CLI) | payer SELFPAY | END 2020-05-25 08:38 | disposition home or self-care (01) | LOC: LAB 08:39 | PROVIDERS: PCP Registered Nurse; Visit Provider Obstetrics & Gynecology | DX: Z87.59 Personal history of other complications of pregnancy, childbirth and the puerperium (principal) | CPT/HCPCS: 36415; 84702 ==

== ENCOUNTER 2020-05-28 08:40 | Outpatient (CLI) | payer SELFPAY | END 2020-05-28 08:41 | disposition home or self-care (01) | LOC: LAB 08:41 | PROVIDERS: PCP Registered Nurse; Visit Provider Obstetrics & Gynecology | DX: Z87.59 Personal history of other complications of pregnancy, childbirth and the puerperium (principal) | CPT/HCPCS: 81000; 84702 ==

== ENCOUNTER 2020-05-31 08:26 | Outpatient (CLI) | payer SELFPAY | END 2020-05-31 08:27 | disposition home or self-care (01) | LOC: LAB 08:27 | PROVIDERS: PCP Registered Nurse; Visit Provider Obstetrics & Gynecology | DX: Z87.59 Personal history of other complications of pregnancy, childbirth and the puerperium (principal) | CPT/HCPCS: 84702 ==

== ENCOUNTER → 2020-06-05 09:39 | Outpatient (BNVA) | payer SELFPAY | PROVIDERS: PCP Registered Nurse; Visit Provider Obstetrics & Gynecology | DX: Z34.90 Encounter for supervision of normal pregnancy, unspecified, unspecified trimester (principal); Z87.59 Personal history of other complications of pregnancy, childbirth and the puerperium | CPT/HCPCS: 81000 ==

== ENCOUNTER 2020-06-11 08:28 | Outpatient (RCR) | payer SELFPAY | END 2020-06-29 23:59 | disposition home or self-care (01) | LOC: LAB 08:28 | PROVIDERS: PCP Registered Nurse; Visit Provider Obstetrics & Gynecology | DX: Z87.59 Personal history of other complications of pregnancy, childbirth and the puerperium (principal) | CPT/HCPCS: 36415; 84702 ==

== ENCOUNTER 2020-06-13 19:23 | Emergency (ER) | payer SELFPAY ==
[2020-06-13 19:36] VITALS: BP 118/67; PULSE 85; RESP 18; TEMP 37; O2SAT 97; BMI 29.2
== END 2020-06-13 19:49 ==
LOC: ER 20:21
PROVIDERS: Emergency Provider Physician Assistant; PCP Registered Nurse
DX: Z53.21 Procedure and treatment not carried out due to patient leaving prior to being seen by health care provider (principal)
CPT/HCPCS: 99281

== ENCOUNTER → 2020-06-14 15:59 | Outpatient (BNVA) | payer SELFPAY | PROVIDERS: PCP Registered Nurse; Visit Provider Obstetrics & Gynecology | DX: O03.9 Complete or unspecified spontaneous abortion without complication (principal) | CPT/HCPCS: 76857 ==

== ENCOUNTER → 2020-07-24 13:02 | Outpatient (BNVA) | payer SELFPAY | PROVIDERS: PCP Registered Nurse; Visit Provider Obstetrics & Gynecology | DX: O02.0 Blighted ovum and nonhydatidiform mole (principal) | CPT/HCPCS: 84702 ==

== ENCOUNTER → 2021-01-21 14:12 | Outpatient (BNVA) | payer MEDICAID, SELFPAY | PROVIDERS: PCP Registered Nurse; Visit Provider Obstetrics & Gynecology | DX: Z12.4 Encounter for screening for malignant neoplasm of cervix (principal) | CPT/HCPCS: 87624; 88175 ==

== ENCOUNTER → 2021-02-05 15:38 | Outpatient (BNVA) | payer MEDICAID, SELFPAY | PROVIDERS: PCP Registered Nurse; Visit Provider Obstetrics & Gynecology | DX: R87.612 Low grade squamous intraepithelial lesion on cytologic smear of cervix (LGSIL) (principal) | CPT/HCPCS: 81025; 88305 ==

== ENCOUNTER → 2022-03-10 10:14 | Outpatient (BNVA) | payer MEDICAID, SELFPAY | PROVIDERS: PCP Registered Nurse; Visit Provider Obstetrics & Gynecology | DX: Z01.419 Encounter for gynecological examination (general) (routine) without abnormal findings (principal); N87.0 Mild cervical dysplasia | CPT/HCPCS: 88175 ==

== ENCOUNTER → 2022-05-30 13:39 | Outpatient (BNVA) | payer MEDICAID, SELFPAY | PROVIDERS: PCP Registered Nurse; Visit Provider Obstetrics & Gynecology | DX: N92.6 Irregular menstruation, unspecified (principal) | CPT/HCPCS: 84702 ==

== ENCOUNTER → 2023-02-09 13:38 | Outpatient (BNVA) | payer MEDICAID, SELFPAY | PROVIDERS: PCP Registered Nurse; Visit Provider Registered Nurse | DX: Z30.9 Encounter for contraceptive management, unspecified (principal) | CPT/HCPCS: 81025 ==

== ENCOUNTER → 2023-04-30 09:30 | Outpatient (BNVA) | payer MEDICAID, SELFPAY | PROVIDERS: PCP Registered Nurse; Visit Provider Nurse Practitioner Women's Health | DX: N87.0 Mild cervical dysplasia (principal) | CPT/HCPCS: 87624 ==